=== PATIENT | male | born 1945 ===

== ENCOUNTER 2021-12-06 07:52 | Outpatient (CLI) | payer OTHER | END 2021-12-06 08:00 | disposition home or self-care (01) | LOC: TOM 07:52 | PROVIDERS: ATTEND Internal Medicine Gastroenterology | DX: K56.600 Partial intestinal obstruction, unspecified as to cause (principal); K59.00 Constipation, unspecified; C18.9 Malignant neoplasm of colon, unspecified; K57.32 Diverticulitis of large intestine without perforation or abscess without bleeding ==